=== PATIENT | male | born 1980 | race Caucasian/White ===

== ENCOUNTER 2019-01-11 18:23 | Emergency (ER) | payer OTHER, BC ==
[2019-01-11 18:33] VITALS: BP 128/85; PULSE 83; TEMP 98.4; BMI 23.5
--- NOTE | 2019-01-11 19:28 | PDOC ---
Documentation entered by Tiesha Fair SCRIBE, acting as scribe for Tiny Yates MD. Tiny Yates MD: This documentation has been prepared by the Marv villafana Aiswarya, SCRIBE, under my direction and personally reviewed by me in its entirety. I confirm that the documentation accurately reflects all work, treatment, procedures, and medical decision making performed by me. History of Present Illness - General Chief Complaint: Injury Stated Complaint: LEFT FOOT INJURY AT WORK Time Seen by Provider: 01/11/19 19:12 History Source: Patient Exam Limitations: No Limitations - History of Present Illness Initial Comments: 01/11/19 19:23 This is a 38-year-old male who comes in complaining of left ankle pain. 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 On my exam patient did have some tenderness over the lateral foot anterior to the malleolus. X-ray was done and read by me as no acute fracture dislocation or pathology. Patient given Harrison wrap and discharged. 01/11/19 19:44 The patient is a 38 year old male, with no significant PMH, who presents to the emergency department for evaluation of a left ankle pain that occurred today. The patient states he is a police sergeant and twisted his left ankle by jumping down about 4 feet [address]. He reports pain, swelling and ecchymosis to the left lateral ankle, mild pain on ambulation. Patient denies any numbness or tingling. Denies chest pain, shortness of breath, headache and dizziness. Denies fever, chills, nausea, vomit, diarrhea and constipation. PAST MEDICAL HISTORY: no significant history PAST SURGICAL HISTORY: no significant history FAMILY HISTORY: no pertinent history SOCIAL HISTORY: Pt lives with family and is employed. MEDICATIONS: reviewed ALLERGIES: As per nursing notes Adult ROS General: No fevers or chills, no weakness, no weight loss HEENT: No change in vision. No sore throat,. No ear pain CardioVascular: No chest pain or shortness of breath Respiratory:No cough, or wheezing. Gastrointestinal: no nausea, vomiting, diarrhea or constipation, No rectal bleeding Genitourinary: No dysuria, hematuria, or frequency Musculoskeletal:+ left ankle sprain. Neurologic: No headache, vertigo, dizziness or loss of consciousness Psychiatric: nor depression Skin: No rashes or easy bruising Endocrine: no increased thirst or abnormal weight change Allergic: no skin or latex allergy All other systems reviewed and normal Basic PE GENERAL: The patient is awake, alert, and fully oriented, in no acute distress. HEAD: Normal with no signs of trauma. EYES: Pupils equal, round and reactive to light, extraocular movements intact, sclera anicteric, conjunctiva clear. EXTREMITIES: +tenderness, swelling and ecchymosis of the left anterolateral ligament. No bony tenderness of the 5th metatarsal foot,leg or knee. . NEUROLOGICAL: Normal speech, normal gait. PSYCH: Normal mood, normal affect. SKIN: Warm, Dry, normal turgor, no rashes or lesions noted. Past History - Past Medical History Allergies/Adverse Reactions: Allergies Allergy/AdvReac Type Severity Reaction Status Date / Time Sulfa (Sulfonamide Allergy Mild Rash Verified 01/11/19 18:24 Antibiotics) [Sulfa(Sulfonamide Antibiotics)] Home Medications: Ambulatory Orders NK [No Known Home Medication] 01/11/19 COPD: No Other medical history: LOWER BACK PAIN - Psycho Social/Smoking Cessation Hx Smoking Status: No Smoking History: Never smoked Number of Cigarettes Smoked Daily: 0 Information on smoking cessation initiated: No Hx Alcohol Use: Yes (SOCIAL) Drug/Substance Use Hx: No *Physical Exam - Vital Signs Last Vital Signs Temp Pulse Resp BP Pulse Ox 98.4 F 83 18 128/85 100 01/11/19 18:24 01/11/19 18:24 01/11/19 18:24 01/11/19 18:24 01/11/19 18:24 Discharge - Discharge Information Problems reviewed: Yes Clinical Impression/Diagnosis: Left ankle sprain Condition: Stable Disposition: HOME - Admission No - Follow up/Referral - Patient Discharge Instructions Additional Instructions: Tylenol or Motrin as needed for pain. Wear the Harrison wrap as needed for comfort. Follow-up with the please surgeon for when you can return to work. 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 Return to the emergency department immediately with ANY new, persistent or worsening symptoms. Continue any medications as previously prescribed by your physician. You should follow up with your primary doctor as soon as possible regarding today's emergency department visit. . Please make sure your doctor reviews the results of your emergency evaluation. Thank you for coming to the Emergency Department today for your care. It was a pleasure to see you today. Please note that your evaluation is INCOMPLETE until you follow-up with your doctor. - Post Discharge Activity Work/Back to School Note: Back to Work
== END 2019-01-11 19:42 | disposition home or self-care (01) ==
LOC: FER 18:23
DX: M25.572 Pain in left ankle and joints of left foot (principal); Y35.891A Legal intervention involving other specified means, law enforcement official injured, initial encounter; X58.XXXA Exposure to other specified factors, initial encounter; Y93.89 Activity, other specified; Y92.89 Other specified places as the place of occurrence of the external cause; Y99.0 Civilian activity done for income or pay; Z88.2 Allergy status to sulfonamides
CPT/HCPCS: 73610-TC-LT-FY; 73630-TC-LT; 99282-25